=== PATIENT | male | born 1985 | race American Indian/Alaskan Native ===

== ENCOUNTER 2017-02-13 12:54 | Emergency (ER) | payer MEDICAID, OTHER ==
[2017-02-13 13:08] VITALS: BP 97/58; PULSE 80; RESP 20; TEMP 98.6; O2SAT 99; BMI 21.9
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
[2017-02-13] MEDS ORDERED: Oxycodone/Acetaminophen 5/325 mg Tab PO STA (13:24)
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
[2017-02-13] MEDS ORDERED: Sodium Chloride 0.9% 1,000 ML IV STA (16:21)
== END 2017-02-13 17:45 | disposition home or self-care (01) ==
LOC: ED 12:54
DX: S02.2XXB Fracture of nasal bones, initial encounter for open fracture (principal); Y00.XXXA Assault by blunt object, initial encounter; Y92.009 Unspecified place in unspecified non-institutional (private) residence as the place of occurrence of the external cause

== ENCOUNTER 2017-11-19 20:27 | Emergency (ER) | payer MEDICAID, OTHER ==
[2017-11-19 20:36] VITALS: BMI 22.7
[2017-11-19 20:42] VITALS: RESP 18; TEMP 97.8
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
[2017-11-19 22:20] VITALS: BP 120/78; PULSE 77; O2SAT 99
== END 2017-11-19 22:10 | disposition home or self-care (01) ==
LOC: ED 20:27
DX: S06.0X0A Concussion without loss of consciousness, initial encounter (principal); S00.93XA Contusion of unspecified part of head, initial encounter; W01.0XXA Fall on same level from slipping, tripping and stumbling without subsequent striking against object, initial encounter; Y93.67 Activity, basketball; Y92.39 Other specified sports and athletic area as the place of occurrence of the external cause; R41.3 Other amnesia